=== PATIENT | female | born 1955 | race Caucasian/White ===

== ENCOUNTER 2020-09-30 16:00 | Emergency (ER) | payer OTHER ==
[~2020-09-30] VITALS: Ht 167.6 cm; Wt 90.7 kg
[~2020-09-30 16:00] MED LIST: LANTUS SQ; LEVOTHYROXINE150 MCG PO; LOSARTAN POTASS50 MG PO; NOVOLOG SQ
[2020-09-30] MEDS ORDERED: KETOROLAC TROMETHAMINE 30 MG/ML VIAL IM STA (16:16)
[2020-09-30 17:23] VITALS: BP 114/60
== END 2020-09-30 17:21 | disposition home or self-care (01) ==
LOC: ER 16:15
DX: R05 Cough (principal); J06.9 Acute upper respiratory infection, unspecified; E11.9 Type 2 diabetes mellitus without complications; E03.9 Hypothyroidism, unspecified; R53.81 Other malaise
CPT/HCPCS: 71045; 99283; J1885

== ENCOUNTER → 2021-12-22 | Outpatient (CLI) | payer MEDICARE ==
[~2021-12-22] MED LIST changes: +GADOBENATE DIMEGLUMINE 1 ML IV ONE
[2021-12-22 09:29] LABS: CREATININE, SERUM 0.91 mg/dL (0.57-1.11)
== END ==
LOC: MRI 08:32
PROVIDERS: ATTEND Specialist
DX: M89.9 Disorder of bone, unspecified (principal); M75.21 Bicipital tendinitis, right shoulder
CPT/HCPCS: 36415; 73220; 82565; 84520; A9577

== ENCOUNTER 2022-01-17 16:30 | Outpatient (RCR) | payer MEDICARE ==
[~2022-01-17 16:30] MED LIST changes: -GADOBENATE DIMEGLUMINE 1 ML IV ONE
== END 2022-01-19 ==
LOC: OT 16:30
PROVIDERS: ATTEND Specialist
DX: M24.521 Contracture, right elbow (principal)

== ENCOUNTER 2022-01-31 14:56 | Outpatient (RCR) | payer MEDICARE | END 2022-02-18 | LOC: OT 14:56 | PROVIDERS: ATTEND Specialist | DX: M24.521 Contracture, right elbow (principal) ==

== ENCOUNTER 2024-07-07 14:14 | Emergency (ER) | payer MEDICARE ==
[~2024-07-07] VITALS: Ht 167.6 cm; Wt 90.7 kg
[2024-07-07 14:24] VITALS: PULSE 83; RESP 16; TEMP 97; O2SAT 100
== END 2024-07-07 15:30 | disposition home or self-care (01) ==
LOC: ER 14:45
DX: R09.89 Other specified symptoms and signs involving the circulatory and respiratory systems (principal); T17.928A Food in respiratory tract, part unspecified causing other injury, initial encounter; E11.9 Type 2 diabetes mellitus without complications; E03.9 Hypothyroidism, unspecified
CPT/HCPCS: 99283